=== PATIENT | male | born 1955 | race African-American/Black ===

== ENCOUNTER 2019-07-01 07:58 | Outpatient (CLI) | payer BC, SELFPAY ==
--- NOTE | ~2019-07-01 | XR_ITS ---
XR chest 2V DATE: 07/01/2019 09:44 INDICATION: Prostate cancer TECHNIQUE: PA and lateral views COMPARISON: None FINDINGS: Normal heart size. There is discoid atelectasis or scarring in the left lower lung. No pu lmonary infiltrate or consolidation is evident. No pleural effusion or pulmonary vascular congestion or pneumothorax. No hilar or mediastinal enlargement. Included skeletal structures are unremarkable. No osteosclerotic lesions are noted. IMPRESSION: Mild discoid atelectasis or scarring in the left lower lung Reviewed, dictated and finalized at location B.
[2019-07-01 08:30] LABS: Basophils Percent Auto 0.4 % (0.2-1.2); Eosinophils Absolute Auto 0.1 K/mm3 (0-0.3); Hematocrit 42.3 % (42.0-52.0); Hemoglobin 13.1 g/dL (14.0-18.0); Immature Granulocyte Absolute 0.01 K/mm3 (0.00-0.031); Immature Granulocyte Percent A 0.2 % (0-0.5); Lymphocytes Absolute Auto 1.95 K/mm3 (0.9-3.2); Mean Corpuscular Hemoglobin 30.8 pg (26-34); Mean Corpuscular Volume 99.3 fl (80-100); Mean Platelet Volume 11.6 fl (7.4-10.4); Monocytes Absolute Auto 0.4 K/mm3 (0.1-0.6); Monocytes Percent Auto 6.5 % (2.6-8.5); Neutrophils Percent Auto 54.9 % (45.5-73.1); Platelet Count Result 120 k/mm3 (150-375); Red Blood Count 4.26 M/mm3 (4.6-6.20); Red Cell Distribution Width 11.7 % (11.5-14.5); White Blood Count 5.4 K/mm3 (4.5-10.0)
[2019-07-01 08:38] LABS: Prothrombin Time 12.6 Seconds (11.1-14.7)
[2019-07-01 08:39] LABS: Partial Thromboplastin Time 26.4 SECONDS (22.3-36.8)
[2019-07-01 08:40] LABS: Alanine Aminotransferase 14 U/L (4-50); Albumin Level 4.4 g/dL (3.5-5.1); Alkaline Phosphatase 58 U/L (38-126); Aspartate Amino Transferase 18 U/L (17-59); Bilirubin,Total 0.7 mg/dL (0.2-1.3); Blood Urea Nitrogen 15 mg/dL (9-20); Calcium 9.4 mg/dL (8.4-10.2); Carbon Dioxide 26 mmol/L (22-30); Chloride 104 mmol/L (98-107); Estimated Glomerular Filt Rate > 60; Glucose 126 mg/dL (75-110); Potassium 3.9 mmol/L (3.4-5.0); Sodium 139 mmol/L (137-145)
[2019-07-01 08:41] LABS: Add Urine Microscopic? YES; Appearance Urine Clear (Clear); Bilirubin Urine Negative (Negative); Blood Urine Negative (Negative); Color Urine Yellow (Yellow); Glucose Urine UA 2+ mg/dL (Negative); Ketones Urine Trace mg/dL (Negative); Leukocyte Esterase Ur Negative LEU/UL (Negative); Mucus Urine Rare /lpf; Nitrate Urine Negative (Negative); Protein Urine 1+ mg/dL (Negative); Specific Grav Ur 1.029 (1.001-1.035); Squamous Epithelial Cell Urine Rare /hpf (Few); Urobilinogen Urine Negative mg/dL (<2.0)
--- NOTE | 2019-07-01 09:04 | ECG_ITS ---
Measurements Intervals [place] Rate: 80 P: 47 MI: 146 QRS: -2 QRSD: 75 T: -7 QT: 331 QTc: 384 Interpretive Statements SINUS RHYTHM NONSPECIFIC T-WAVE ABNORMALITY- INFERIOR LEADS BASELINE ARTIFACT- II, III, AVF BORDERLINE ECG Electronically Signed On 07-01-2019 9:22:26 CDT by Kamron Adrian D.O.
== END 2019-07-01 07:59 | disposition home or self-care (01) ==
PROVIDERS: Visit Provider Urology
DX: Z01.818 Encounter for other preprocedural examination (principal); R94.31 Abnormal electrocardiogram [ECG] [EKG]; R91.8 Other nonspecific abnormal finding of lung field
CPT/HCPCS: 36415; 71046; 80053; 81001; 85025; 85055; 85610; 85730; 86850; 86900; 86901; 93005

== ENCOUNTER 2019-07-08 02:23 | Day surgery (SDC) | payer BC, SELFPAY ==
[2019-06-30 10:43] VITALS: BMI 27.4
--- NOTE | 2019-07-01 15:26 | PM.IMHP ---
H&P: HPI History of Present Illness Chief complaint: Prostate Ca Narrative: Kelvin Bustillos is a 63 year old male with clinically localized prostate cancer. Several months ago was found to have a PSA 6.2 and a prostate biopsy showing 2 of 12 cores with Sarah 6 prostate cancer. Prostate volume on ultrasound was 42 grams. After discussion therapeutic options and he initially elected for active surveillance but with reconsideration has now decided on a robotic radical prostatectomyas definitive therapy. Alternative treatment options (including active surveillance, radiation therapy in its various forms and androgen ablation) have been discussed. We've also discussed complications of this procedure including, but not limited to, failure to control his cancer, adverser cardiopulmonary events, rectal injury, need to convert to an open procedure, urinary incontinence and erectile dysfunction. Review of Systems Constitutional: Constitutional: Denies chills, Denies fatigue, Denies fever(s) and Denies headache(s) Eyes: Eyes: Denies blurry vision ENT: Denies vertigo, Denies dizziness, Denies headache(s) and Denies sore throat Cardiovascular: Cardiovascular: Denies chest pain, Denies syncope, Denies lightheadedness, Denies palpitations, Denies dyspnea and Denies dyspnea on exertion Respiratory: Respiratory: Denies hemoptysis, Denies dyspnea and Denies dyspnea on exertion Gastrointestinal: Gastrointestinal: Denies melena, Denies bloating, Denies hematochezia, Denies change in bowel habits, Denies change in stool character, Denies constipation, Denies diarrhea and Denies vomiting Genitourinary: Genitourinary: Denies hematuria, Denies dysuria, Denies testicular pain, Denies urinary frequency, Denies urinary hesitancy and Denies urinary urgency Integumentary/Breasts: Skin/Breast: Denies pruritus, Denies lesions and Denies rash Neurologic: Denies confusion, Denies vertigo, Denies dizziness, Denies syncope and Denies headache(s) Psychiatric: Psychiatric: Denies anxiety, Denies change in appetite and Denies confusion Endocrine: Endocrine: Denies fatigue and Denies palpitations Meds Home Medications and Allergies Home Medications Medication Instructions Recorded Confirmed Type lisinopril 20 mg tablet 20 mg PO DAILY #90 tablet 04/05/19 06/30/19 Rx aspirin [Aspir-81] 81 mg PO DAILY 06/30/19 06/30/19 History cholecalciferol (vitamin D3) 50 mcg PO DAILY 06/30/19 06/30/19 History metformin 1,000 mg PO BID 06/30/19 06/30/19 History rizatriptan 10 mg PO PRN PRN 06/30/19 06/30/19 History simvastatin 40 mg PO DAILY 06/30/19 06/30/19 History Allergies Allergy/AdvReac Type Severity Reaction Status Date / Time No Known Allergies Allergy Unverified 06/30/19 10:39 Exam Const: General: healthy appearing, comfortable, no acute distress and well developed; No confusion Nutritional Appearance: well nourished Orientation/consciousness: patient oriented x3 and No confusion HENMT: Head: normocephalic and atraumatic Ears: external ears normal Face and sinus: normal facial exam Mouth: Yes lip normal Teeth and gingiva: dentition normal Eyes: General: appearance normal, both eyes and all related structures Alignment and Position: alignment normal Eyelids: eyelids normal Cornea: corneas normal Pupils: Equal, round and reactive pupils present EOM: EOMs intact bilaterally Neck: Neck: normal visual inspection, full ROM and no JVD Chest: Chest palpation & inspection: normal inspection of the chest Resp: Effort & Inspection: normal respiratory effort and no use of accessory muscles Auscultation: clear to auscultation bilaterally Cardio: Jugular venous distension: no JVD Rate: regular rate Rhythm: regular rhythm GI: Inspection: normal to inspection GI Palp: No abdominal tenderness, No Guarding due to palpation present (GI) and No Rebound tenderness present Auscultation: normal bowel sounds : General: Yes bladder normal to palpation and No CVA
[2019-07-08] VITALS (13 sets, daily range): BP systolic 119–161; BP diastolic 63–90; PULSE 70–112; RESP 12–20; TEMP 36–36.7; O2SAT 97–100; BMI 29.7
[2019-07-08] MEDS: LACTATED RINGERS 1,000 ML 30 ML IV CONT ×2 (07:10→11:09)
[2019-07-08 07:17] LABS: Basophils Percent Auto 0.4 % (0.2-1.2); Eosinophils Absolute Auto 0.1 K/mm3 (0-0.3); Eosinophils Percent Auto 2.8 % (0-4.4); Hematocrit 42.6 % (42.0-52.0); Immature Granulocyte Absolute 0.01 K/mm3 (0.00-0.031); Immature Granulocyte Percent A 0.2 % (0-0.5); Immature Platelet Fraction Pct 10.6 % (0.9-11.2); Lymphocytes Absolute Auto 1.76 K/mm3 (0.9-3.2); Lymphocytes Percent Auto 34.7 % (18.3-44.2); Mean Corpuscular HGB Conc 30.5 g/dl (32-36); Mean Corpuscular Hemoglobin 30.4 pg (26-34); Mean Corpuscular Volume 99.5 fl (80-100); Mean Platelet Volume 11.4 fl (7.4-10.4); Monocytes Absolute Auto 0.4 K/mm3 (0.1-0.6); Monocytes Percent Auto 7.3 % (2.6-8.5); Neutrophils Absolute Auto 2.8 K/mm3 (1.3-6.7); Neutrophils Percent Auto 54.6 % (45.5-73.1); Platelet Count Result 107 k/mm3 (150-375); Red Blood Count 4.28 M/mm3 (4.6-6.20); Red Cell Distribution Width 11.9 % (11.5-14.5); White Blood Count 5.1 K/mm3 (4.5-10.0)
--- NOTE | 2019-07-08 07:20 | WPDANESEPPF ---
Anes - Initial Pre Proc Eval Procedure: Operation Date: 07/08/19 07:30 Proposed Procedures p Robotic Assisted Laparoscopic Prostatectomy With Bilateral Pelvic Lymph Node Dissection - Champ Ny MD Date/Time: 07/08/19 07:20 Surgeon: Champ Ny MD Pre Op Diagnosis: Prostate Ca Patient Data Age: 63 Gender: M Height: 5 ft 5 in Weight: 74.9 kg Allergies Allergy/AdvReac Type Severity Reaction Status Date / Time No Known Allergies Allergy Unverified 06/30/19 10:39 Home Medications Medication Instructions Recorded Confirmed Type lisinopril 20 mg tablet 20 mg PO DAILY #90 tablet 04/05/19 06/30/19 Rx aspirin [Aspir-81] 81 mg PO DAILY 06/30/19 06/30/19 History cholecalciferol (vitamin D3) 50 mcg PO DAILY 06/30/19 06/30/19 History metformin 1,000 mg PO BID 06/30/19 06/30/19 History rizatriptan 10 mg PO PRN PRN 06/30/19 06/30/19 History simvastatin 40 mg PO DAILY 06/30/19 06/30/19 History Laboratory Tests 07/08/19 07/08/19 07/08/19 06:55 06:55 06:55 WBC 5.1 K/mm3 K/mm3 (4.5-10.0) RBC 4.28 M/mm3 L M/mm3 (4.6-6.20) Hgb 13.0 g/dL L g/dL (14.0-18.0) Hct 42.6 % % (42.0-52.0) MCV 99.5 fl fl (80-100) MCH 30.4 pg pg (26-34) MCHC 30.5 g/dl L g/dl (32-36) RDW 11.9 % % (11.5-14.5) Plt Count 107 k/mm3 L k/mm3 (150-375) MPV 11.4 fl H fl (7.4-10.4) Immature Gran % (Auto) 0.2 % % (0-0.5) Neut % (Auto) 54.6 % % (45.5-73.1) Lymph % (Auto) 34.7 % % (18.3-44.2) [place] % (Auto) 7.3 % % (2.6-8.5) Eos % (Auto) 2.8 % % (0-4.4) Baso % (Auto) 0.4 % % (0.2-1.2) Lymph # (Auto) 1.76 K/mm3 K/mm3 (0.9-3.2) [place]vert # (Auto) 0.4 K/mm3 K/mm3 (0.1-0.6) Eos # (Auto) 0.1 K/mm3 K/mm3 (0-0.3) Baso # (Auto) 0.0 K/mm3 K/mm3 (0.0-0.1) Abs Immat Gran (auto) 0.01 K/mm3 K/mm3 (0.00-0.031) Absolute Neuts (auto) 2.8 K/mm3 K/mm3 (1.3-6.7) Absolute Nucleated RBC 0.0 K/mm3 K/mm3 (0.0-0.012) Nucleated RBC % 0.0 % % (0.0-0.2) % Immature Plt Fraction 10.6 % % (0.9-11.2) PT Pending INR Pending APTT Pending Sodium Pending Potassium Pending Chloride Pending Carbon Dioxide Pending BUN Pending Creatinine Pending Estim Creat Clear Calc Pending Estimated GFR Pending Glucose Pending Calcium Pending Total Bilirubin Pending AST Pending ALT Pending Alkaline Phosphatase Pending Total Protein Pending Albumin Pending Patient hx anesthesia problems: none Family hx anesthesia problems: none PMFSH Past Medical History Medical History Diabetes Hyperlipidemia Hypertension ALAN (obstructive sleep apnea) Anes - Eval Final PreProcedure Day of Procedure 07/08/19 07:20 Patient weight: overweight Heart: regular rate and rhythm Lungs: clear to auscultation Airway: Mallampati scale class II Neurological: alert and oriented Last oral intake: >/= 8 hours ASA classification: III Emergent: no Anesthetic plan: proceed Anesthesia type and monitoring: general ETT and standard monitoring Informed Consent: The patient's anesthetic plan and its attendant risks and benefits were discussed with the patient/family/POA. Questions were solicited and answers provided to the satisfaction of the patient/family/POA.
--- NOTE | 2019-07-08 07:24 | WPDHPUPDATE1 ---
History and Physical Update Update Date/Time: 07/08/19 07:24 History and Physical has been reviewed, including an updated exam of the patient. There are NO changes in the patient's condition. Risks, benefits, and alternatives have been discussed and questions answered. Patient agrees to proceed with procedure.
[2019-07-08 07:27] LABS: INR 0.9; Prothrombin Time 12.3 Seconds (11.1-14.7)
[2019-07-08 07:28] LABS: Add Urine Microscopic? YES; Appearance Urine Clear (Clear); Bilirubin Urine Negative (Negative); Blood Urine Negative (Negative); Calcium Oxalate Crystals Urine Present /hpf; Color Urine Yellow (Yellow); Glucose Urine UA Negative (Negative); Ketones Urine Trace mg/dL (Negative); Leukocyte Esterase Ur Negative LEU/UL (Negative); Mucus Urine Rare /lpf; Nitrate Urine Negative (Negative); Protein Urine 1+ mg/dL (Negative); RBC Urine 0-2 /hpf (0-2); Specific Grav Ur 1.028 (1.001-1.035); Urobilinogen Urine Negative mg/dL (<2.0)
[2019-07-08 07:31] LABS: Glucose Point of Care 89 (65-105)
[2019-07-08] MEDS: ceFAZolin 2 GM/D5W 50 ML 2 GM/50 ML BAG IVPB (07:33)
[2019-07-08 07:38] LABS: Alanine Aminotransferase 16 U/L (4-50); Albumin Level 4.4 g/dL (3.5-5.1); Alkaline Phosphatase 51 U/L (38-126); Aspartate Amino Transferase 27 U/L (17-59); Bilirubin,Total 1.2 mg/dL (0.2-1.3); Blood Urea Nitrogen 16 mg/dL (9-20); Calcium 9.2 mg/dL (8.4-10.2); Carbon Dioxide 25 mmol/L (22-30); Chloride 106 mmol/L (98-107); Estimated CRCL calculation 55 ml/min; Estimated Glomerular Filt Rate > 60; Glucose 105 mg/dL (75-110); Potassium 4.5 mmol/L (3.4-5.0); Sodium 138 mmol/L (137-145)
[2019-07-08 11:31] LABS: Glucose Point of Care 171 (65-105)
--- NOTE | 2019-07-08 11:32 | PM.PROC ---
Procedure Note - Detailed Date of procedure: 07/08/19 Pre-op diagnosis: Prostate Ca Post-op diagnosis: same Procedure performed: 1. Robotic-assisted radical prostatectomy. 2. Robotic-assisted bilateral pelvic lymphadenectomy. Description of procedure: The patient was brought to the operative suite, where he was prepped and draped in routine sterile fashion while in a dorsal lithotomy, deep Trendelenburg position. A supraumbilical 10 mm trocar was placed after insufflation of the abdomen with a Veress needle. Three robotic ports were then placed under direct vision. Two of these were placed in the right lower quadrant - 10 cm and 20 cm lateral to, and in line with, the umbilicus. A third robotic trocar was placed 10 cm to the left of the umbilicus, and 20 cm to the left of the umbilicus, a 12 mm standard laparoscopic trocar was placed to be used as an information assistant port. Lastly, a 5 mm trocar was placed in the left upper quadrant midway between the umbilicus and the left robotic trocar. Attention was then turned to the prostatectomy. I opted for a posterior approach in this patient. An incision was made in the parietal peritoneum along the posterior bladder/posterior prostate about 2 cm above the reflection of the peritoneum over the anterior rectum. The seminal vesicles and vas deferens were immediately identified. Dissection is undertaken in a fashion so as to avoid electrocautery as much as possible, particularly near the tips of the seminal vesicles. Dissection was also carried out in the midline so as to avoid any encounters with the ureters. The vas deferens and the seminal vesicles were dissected in their entirety to the base of the prostate. The plane anterior to Denoviller's fascia, anterior to the rectum and posterior to the prostate was then developed. I then dropped the bladder by incising the anterior parietal peritoneum just lateral to the median umbilical ligaments bilaterally. The bladder was dropped from the anterior abdominal and pelvic wall. The endopelvic fascia was identified and incised bilaterally, allowing for dissection of the posterior-lateral aspect of the prostate. The puboprostatic ligaments were transected near their origin from the posterior pubic ramus. This posterior lateral dissection of the prostate is also undertaken in a fashion so as to avoid electrocautery as much as possible. The dorsal vein of the penis is then secured with an 0 -Vicryl ligature. Attention is then turned to the bladder neck. The anterior bladder neck is incised at the vesico-prostatic junction. The previously placed urethral catheter was drawn through the urethrotomy. A very small bladder neck was maintained throughout the remainder of this dissection. The posterior bladder neck was incised in a fashion so as to avoid any injury to the ureteral orifices. Again, the small aperture of the bladder neck was maintained. The previously dissected vas deferens and the seminal vesicles were brought through the posterior bladder neck incision. The lateral prostatic pedicles were then carefully dissected from the lateral aspect of the prostate bilaterally. The prostatic pedicles were secured with Weck clips and transected. The neurovascular bundles were carefully dissected from the posterior-lateral aspect of the prostate. The dorsal vein of the penis was incised with electrocautery. Using cold scissors, the urethra was incised. After withdrawing the previously placed urethral catheter, the posterior urethra was sharply incised, as was the rectalurethralis muscle. Attention was then turned to a bilateral pelvic lymphadenectomy. The limits of this dissection were similar bilaterally. Specifically, the limits were the bifurcation of the common iliac vein proximally, the inguinal ligament distally, the obturator nerve posteriorly and the anterior aspect to the external iliac vein laterally. This dissection was undertaken with care to avoid any injury to the obtu
--- NOTE | 2019-07-08 12:05 | SUR.PHASEI ---
1202 SPOKE WITH SPOUSE ANETA PER PHONE- UPDATE GIVEN. SPOUSE LEAVING AND WANTS TO TALK TO PT PER PHONE THIS EVENING.
[2019-07-08] MEDS: ONDANSETRON INJ 4 MG/2 ML VIAL IV PUSH (12:32)
[2019-07-08] MEDS: LACTATED RINGERS 1,000 ML 125 ML IV CONT ×2 (13:09→21:27)
--- NOTE | 2019-07-08 13:22 | PC.NURSE ---
This patient, Kelvin Bustillos, was admitted to 3 [facility] Surg Room 312-01. Patient/family oriented to hospital policies and general routines including ID bracelet, bed and alarms, visiting hours, pain management, procedures, bathroom and other care routines, personal items, smoking policy, room service/diet, and visiting hours. Valuables list has been completed. Information on how to activate the Rapid Response Team has been discussed. Patient/Family are encouraged to report perceived risks to care and to ask questions if they do not understand what they are told or what they should do.
[2019-07-08] MEDS: HYOSCYAMINE SULFATE 0.125 MG TABLET SUBLINGUAL (14:29)
[2019-07-08] MEDS: SIMVASTATIN 20 MG TABLET 40 MG PO (14:29)
[2019-07-08] MEDS: lisinopriL 20 MG TABLET PO (14:29)
[2019-07-08] MEDS: metFORMIN HCL 500 MG TABLET 1000 MG PO (17:12)
[2019-07-08 17:25] LABS: Glucose Point of Care 182 (65-105)
[2019-07-08] MEDS: KETOROLAC 30 MG/ML VIAL (*BKC) IV PUSH (21:26)
[2019-07-08 21:59] LABS: Glucose Point of Care 181 (65-105)
[2019-07-09 02:21] VITALS: BP 97/55; PULSE 104; RESP 18; TEMP 36.6; O2SAT 96
[2019-07-09] MEDS: LACTATED RINGERS 1,000 ML 125 ML IV CONT ×2 (05:50→14:41)
[2019-07-09 06:06] LABS: Hematocrit 27.5 % (42.0-52.0); Hemoglobin 8.5 g/dL (14.0-18.0)
[2019-07-09 06:16] LABS: Blood Urea Nitrogen 14 mg/dL (9-20); Calcium 7.9 mg/dL (8.4-10.2); Carbon Dioxide 26 mmol/L (22-30); Chloride 104 mmol/L (98-107); Estimated CRCL calculation 42 ml/min; Estimated Glomerular Filt Rate 53; Glucose 120 mg/dL (75-110); Potassium 4.6 mmol/L (3.4-5.0); Sodium 134 mmol/L (137-145)
[2019-07-09 06:21] VITALS: BP 101/49; PULSE 95; RESP 16; TEMP 36.6; O2SAT 98
--- NOTE | 2019-07-09 07:51 | WPDUROPN2 ---
Progress Note: A&P Assessment and Plan (1) Prostate cancer: Code(s): C61 - Malignant neoplasm of prostate Status: Acute Assessment and Plan: Doing well POD #1 RALP. Increase ambulation and diet. Possibly home this afternoon. Subjective Subjective Date/Time Seen: 07/09/19 07:51 POD #1 RALP Comfortable, minimal pelvic discomfort. Review of Systems Cardiovascular: Cardiovascular: Denies chest pain, Denies lightheadedness, Denies palpitations and Denies dyspnea Respiratory: Respiratory: Denies dyspnea Gastrointestinal: Gastrointestinal: Denies diarrhea, Denies nausea and Denies vomiting Genitourinary: Genitourinary: Denies hematuria and Denies dysuria Endocrine: Endocrine: Denies palpitations Exam Const: General: no acute distress Resp: Effort & Inspection: normal respiratory effort GI: Inspection: normal to inspection (incisions clean and dry) and non-distended GI Palp: Yes abdominal tenderness (minimal) and No Guarding due to palpation present (GI) Auscultation: normal bowel sounds Extrem: General: normal to inspection and pedal edema present Objective Data Vital Signs Vital Signs: Vital Signs - 24 hr 07/08/19 11:09 07/08/19 11:20 07/08/19 11:35 Temperature 96.8 F L Pulse Rate 90 75 76 Respiratory Rate 17 14 12 Blood Pressure 160/90 H 138/82 133/80 Pulse Oximetry 98 100 100 07/08/19 11:50 07/08/19 12:05 07/08/19 12:20 Temperature 96.8 F L Pulse Rate 75 79 84 Respiratory Rate 12 14 16 Blood Pressure 137/84 150/82 H 161/84 H Pulse Oximetry 99 98 99 07/08/19 12:35 07/08/19 12:40 07/08/19 12:55 Temperature 97.6 F 97.8 F Pulse Rate 70 84 84 Respiratory Rate 12 18 18 Blood Pressure 161/82 H 147/74 H 155/76 H Pulse Oximetry 100 100 100 07/08/19 13:25 07/08/19 14:21 07/08/19 22:00 Temperature 97.5 F L 97.7 F 97.9 F Pulse Rate 70 85 112 H Respiratory Rate 18 18 20 Blood Pressure 129/63 127/63 119/63 Pulse Oximetry 100 100 100 07/09/19 02:21 07/09/19 06:21 Temperature 97.9 F 97.8 F Pulse Rate 104 H 95 Respiratory Rate 18 16 Blood Pressure 97/55 L 101/49 L Pulse Oximetry 96 98 Intake/Output Intake/Output: Intake & Output 07/06/19 07/07/19 07/08/19 07/09/19 23:59 23:59 23:59 23:59 Intake Total 2540 1500 Output Total 500 700 Balance 2040 800 Meds/Results Medications: Active Medications Generic Name Dose Route Start Last Admin Trade Name Freq PRN Reason Stop Dose Admin Dextrose 12.5 gm 07/08/19 12:36 Dextrose 50% Syringe IV PUSH PRN PRN Hypoglycemia Protocol Glucagon 1 mg 07/08/19 12:36 Glucagon For Inj IM PRN PRN Hypoglycemia Protocol Glucose 15 gm 07/08/19 12:36 Glutose 15 PO PRN PRN Hypoglycemia Protocol Hyoscyamine 0.125 mg 07/08/19 12:36 07/08/19 14:29 Levsin Tablet SUBLINGUAL 0.125 mg Q4H PRN Administration Bladder Spasm Acetaminophen 1,000 mg in 100 mls @ 400 mls/hr 07/08/19 13:00 07/09/19 06:05 Ofirmev 1,000 Mg Ivpb IVPB 07/09/19 13:01 Infused Q6HR KUN Infusion Dextrose 1,000 mls @ 100 mls/hr 07/08/19 12:36 Dextrose 5% 1,000 Ml IVPB PRN PRN Hypoglycemia Protocol Lactated Ringer's 1,000 mls @ 125 mls/hr 07/08/19 12:36 07/09/19 05:50 Lr - Lactated Ringers Iv IV CONT 125 mls/hr .Q8H KUN Administration Insulin Aspart 2 - 5 units 07/08/19 12:36 07/08/19 17:15 Novolog SUB-Q Not Given TIDWM KUN Protocol Ketorolac Tromethamine 30 mg 07/08/19 12:36 07/08/19 21:26 Toradol Inj IV PUSH 07/09/19 12:37 30 mg Q6H PRN Administration Pain Rated 4-6 Levofloxacin 500 mg 07/09/19 09:00 Levaquin Tab PO DAILY KUN Lisinopril 20 mg 07/08/19 09:00 07/08/19 14:29 Prinivil PO 20 mg DAILY KUN Administration Metformin HCl 1,000 mg 07/08/19 17:00 07/08/19 17:12 Glucophage PO 1,000 mg BIDWM KUN Administration Naloxone HCl 0.1 mg 07/08/19 12:36 N
[2019-07-09] MEDS: SIMVASTATIN 20 MG TABLET 40 MG PO (08:17)
[2019-07-09] MEDS: lisinopriL 20 MG TABLET PO (08:17)
[2019-07-09] MEDS: metFORMIN HCL 500 MG TABLET 1000 MG PO (08:17)
[2019-07-09 08:28] LABS: Glucose Point of Care 128 (65-105)
[2019-07-09 10:21] VITALS: BP 130/71; PULSE 109; RESP 18; TEMP 36.4; O2SAT 100
[2019-07-09] MEDS: BENZOCAINE/MENTHOL (*BKC) 18 EA LOZENGE 1 LOZENGE PO (12:18)
[2019-07-09] MEDS: HYOSCYAMINE SULFATE 0.125 MG TABLET SUBLINGUAL (12:34)
[2019-07-09 12:44] LABS: Glucose Point of Care 125 (65-105)
[2019-07-09] MEDS: LIDOCAINE HCL 2% GEL UROJET 10 ML PKG MUCOUS MEM (12:45)
[2019-07-09 14:00] VITALS: BP 132/71; PULSE 103; RESP 18; TEMP 36.4; O2SAT 100
[2019-07-09 14:21] VITALS: BP 133/71; PULSE 60; RESP 18; TEMP 36.4; O2SAT 100
--- NOTE | 2019-07-09 15:53 | WPDANESPN ---
Anes - Prog Note Post-Op Date/Time: 07/09/19 15:53 Cardiovascular status: normal Respiratory status: normal Airway patency: baseline Mental status: baseline Post-Op hydration status: normal Vital Signs: Last Vital Signs Temp 36.4 C 07/09/19 14:00 Pulse 103 H 07/09/19 14:00 Resp 18 07/09/19 14:00 BP 132/71 07/09/19 14:00 Pulse Ox 100 07/09/19 14:00 I/O: Intake & Output 07/08/19 07/09/19 07/09/19 23:59 07:59 15:59 Intake Total 1890 1500 1220 Output Total 400 700 Balance 7891 021 5034 Laboratory Tests 07/09/19 05:10 07/09/19 05:10 07/08/19 07/08/19 07/09/19 17:15 21:36 05:10 Hgb 8.5 L D Hct 27.5 L Sodium Potassium Chloride Carbon Dioxide BUN Creatinine Estim Creat Clear Calc Estimated GFR Glucose POC Capillary Glucose 182 H 181 H Calcium 07/09/19 07/09/19 07/09/19 05:10 08:15 12:20 Hgb Hct Sodium 134 L Potassium 4.6 Chloride 104 Carbon Dioxide 26 BUN 14 Creatinine 1.60 H Estim Creat Clear Calc 42 Estimated GFR 53 L Glucose 120 H POC Capillary Glucose 128 H 125 H Calcium 7.9 L Post-procedural complaints: none Patient Feedback: Patient satisfied with anesthetic care.
--- NOTE | 2019-07-09 16:13 | PM.DS ---
DS: Diagnosis Admitting Diagnosis Admitting Diagnosis: Malignant neoplasm of prostate DS: Summary Time Spent with Patient Time attestation: Total time spent providing and/or coordinating discharge services: Discharge diagnosis: 1. Malignant neoplasm of prostate. 2. Post-operative, blood loss anemia. This patient was admitted on the morning of his planned robotic prostatectomy. This procedure was uneventful, as was his postoperative course. By the evening of the procedure he was sitting at the bedside in tolerating a liquid diet. The following morning he was ambulating freely and tolerating regular food. His catheter drainage remained essentially clear throughout. Post-operative H/H was depressed due to intra-operative blood loss. Following the procedure he remained without signs of ongoing blood loss (benign abdominal exam) and was without hypotension or tachycardia. At the time of discharge he has been instructed in appropriate care for his Yancey catheter with both a leg bag and bedside bag. He will be discharged with plans to follow-up in 1 week with a cystogram. Exam Const: General: no acute distress Resp: Effort & Inspection: normal respiratory effort GI: Inspection: non-distended GI Palp: No abdominal tenderness and No Guarding due to palpation present (GI) Auscultation: normal bowel sounds DS: Data Data Completed and Pending Pending studies at discharge: Pending at discharge 07/08/19 09:47 Surgical [PTH] Routine Labs on day of discharge: Labs from last 24 hours 07/09/19 07/09/19 07/09/19 12:20 08:15 05:10 Hgb Hct Sodium 134 L Potassium 4.6 Chloride 104 Carbon Dioxide 26 BUN 14 Creatinine 1.60 H Estim Creat Clear Calc 42 Estimated GFR 53 L Glucose 120 H POC Capillary Glucose 125 H 128 H Calcium 7.9 L 07/09/19 07/08/19 07/08/19 05:10 21:36 17:15 Hgb 8.5 L D Hct 27.5 L Sodium Potassium Chloride Carbon Dioxide BUN Creatinine Estim Creat Clear Calc Estimated GFR Glucose POC Capillary Glucose 181 H 182 H Calcium Discharge Plan Discharge Patient Disposition: Home, Self-Care Discharge Instructions: 1) Yancey catheter -> leg bag / bedside bag at night. 2) No lifting/straining >15lbs. x3 weeks. 3) No driving x1-week. 4) Resume normal, pre-operative diet. 5) My office will contact regarding follow-up in 1-week with cystogram. Patient Instructions: Pain Management (DC), Robot Assisted Laparoscopic Prostatectomy (DC) Discharge Medications: New ciprofloxacin HCl 500 mg tablet 500 mg PO Q12H Qty: 10 RF: 0 docusate sodium [Colace] 100 mg capsule 100 mg PO DAILY Qty: 30 RF: 0 hydrocodone-acetaminophen 5-325 mg tablet 1 - 2 tablet PO Q6H PRN (Reason: pain) Qty: 30 RF: 0 hyoscyamine sulfate 0.125 mg tablet 0.125 mg PO Q6H PRN (Reason: bladder spasms) Qty: 20 RF: 2 Continued rizatriptan 10 mg Tablet 10 mg PO PRN PRN (Reason: MIGRAINES) RF: 0 simvastatin 40 mg Tablet 40 mg PO DAILY RF: 0 cholecalciferol (vitamin D3) 50 mcg (2,000 unit) Tablet 50 mcg PO DAILY RF: 0 metformin 1,000 mg tablet 1,000 mg PO BID RF: 0 lisinopril 20 mg tablet 20 mg PO DAILY Qty: 90 RF: 1 Held aspirin [Aspir-81] 81 mg Tablet,Delayed Release (Dr/Ec) 81 mg PO DAILY RF: 0 Hold Instructions: Resume on 07/15/19.
== END 2019-07-09 17:10 | disposition home or self-care (01) ==
LOC: ANHSURGERY 06:44 → ANH3MEDSUR 12:40
PROVIDERS: PCP Emergency Medicine; Visit Provider Urology
PROC: 0VT04ZZ Resection of Prostate, Percutaneous Endoscopic Approach (ICD-10-PCS; CPT 55867; principal; 2019-07-08 07:30)
DX: C61 Malignant neoplasm of prostate (principal); D62 Acute posthemorrhagic anemia; I10 Essential (primary) hypertension; E78.5 Hyperlipidemia, unspecified; E11.9 Type 2 diabetes mellitus without complications; G47.33 Obstructive sleep apnea (adult) (pediatric); Z79.82 Long term (current) use of aspirin; Z79.84 Long term (current) use of oral hypoglycemic drugs
CPT/HCPCS: 55866; 38571; S2900; 36415; 80048; 80053; 81001; 85014; 85018; 85025; 85055; 85610; 85730; 86850; 86900; 86901; 88305; 88307; 88309; 88342; A9270; J0131; J0690; J1170; J1885; J2250; J2270; J2405; J2704; J2710; J3010; J7030; J7120

== ENCOUNTER 2019-07-16 09:38 | Outpatient (CLI) | payer BC, SELFPAY ==
--- NOTE | ~2019-07-16 | XR_ITS ---
EXAMINATION: XR cystogram DATE: 07/16/2019 10:18 INDICATION: Prostate cancer status post prostatectomy. TECHNIQUE: Water-soluble contrast was gravity-infused through the patient's Yancey catheter. Multiple fluoroscopic images were obtained. Fluoroscopy exposure time was 0.2 minutes. The total number of kimberlee ges was 11. COMPARISON: None. FINDINGS: There is no extraluminal leakage of contrast from the bladder. There was no ureteral reflux . IMPRESSION: 1. No extraluminal leakage of contrast from the bladder. Reviewed, dictated and finalized at location A.
== END 2019-07-16 09:39 | disposition home or self-care (01) ==
PROVIDERS: PCP Emergency Medicine; Visit Provider Urology
DX: C61 Malignant neoplasm of prostate (principal)
CPT/HCPCS: 51600; 74430; Q9967